=== PATIENT | female | born 1980 | race Caucasian/White ===

== ENCOUNTER 2016-04-09 12:14 | Emergency (ER) | payer BC, OTHER ==
[~2016-04-09] VITALS: Ht 175.3 cm; Wt 109.0 kg
[~2016-04-09 12:14] MED LIST: BACT800T5 PO; CLIN1CAP5 PO; LORA1TAB PO; METO25CR PO
[2016-04-09 12:18] VITALS: BP 133/81; PULSE 82; RESP 16; TEMP 97.9; O2SAT 97
[2016-04-09] MEDS ORDERED: METO50TA PO (12:28)
[2016-04-09] MEDS ORDERED: SULF1TAB23 PO (12:28)
[2016-04-09] MEDS ORDERED: ALPR1TAB3 PO (12:28)
[2016-04-09] MEDS ORDERED: PENI500T PO (12:44)
--- NOTE | 2016-04-09 12:44 | PD ---
HPI Chief Complaint: Facial Pain or Swelling Time Seen by Provider: 12:36 Travel History International Travel<30 days: No Contact w/Intl Traveler<30days: No Traveled to known affect area: No History of Present Illness HPI This is a 35-year-old female who presents to the emergency department with 2 days of right sided facial swelling below her eye involving the maxilla. She has known chipped and broken teeth on the right side and no she needs dental work but can't afford it right now. She denies any fevers or chills. She's been on Bactrim for a rash for several days that has not helped. PFSH Past Medical History Hx Anticoagulant Therapy: No Anxiety: Yes Cardiovascular Problems: Yes (HTN) Diabetes: No Diminished Hearing: No Hypertension: Yes Immunizations Current: Yes ?: Not Tubal Ligation: Yes Past Surgical History Abdominal Surgery: No Cardiac Surgery: No Section: Yes Ear Surgery: No Endocrine Surgery: No Eye Surgery: No Genitourinary Surgery: No Neurologic Surgery: No Oral Surgery: No Thoracic Surgery: No Other Surgery: No Social History Alcohol Use: Yes Tobacco Use: Yes (03/31 PPD) Substance Use: No Allergies-Medications (Allergen,Severity, Reaction): Coded Allergies: Cipro (Verified Allergy, Severe, ITCHING/RASH/HIVES, 04/09/16) Reported Meds & Prescriptions Reported Meds & Active Scripts Active Reported Metoprolol Tartrate 50 Mg Tab 50 Mg PO BID Alprazolam 1 Mg Tab 1 Mg PO TID PRN Sulfamethoxazole-Trimethoprim 800-160 Mg Tab 1 Tab PO BID Review of Systems General / Constitutional: No: Fever, Chills Respiratory: No: Shortness of Breath Physical Exam Narrative GENERAL: Well-appearing, no acute distress, nontoxic ENT: Multiple fractured teeth along the right maxilla. Swelling of the right face infraorbital down to the axilla. No submandibular swelling. HEAD: Atraumatic. Normocephalic. ENT: No nasal bleeding or discharge. Moist mucous membranes MUSCULOSKELETAL: No obvious deformities. No clubbing. No cyanosis. No edema. NEUROLOGICAL: Awake and alert. No obvious cranial nerve deficits. Motor grossly within normal limits. Normal speech. PSYCHIATRIC: Appropriate mood and affect; insight and judgment normal. Data Data Last Documented VS Vital Signs Date Time Temp Pulse Resp B/P Pulse Ox O2 Delivery O2 Flow Rate FiO2 04/09/16 12:18 97.9 82 16 133/81 97 MDM Medical Decision Making Medical Screen Exam Complete: Yes Emergency Medical Condition: Yes Differential Diagnosis Dental abscess, Alec angina, orbital cellulitis Narrative Course This is a 35-year-old female who presents to the emergency department with swelling of the right face in the setting of poor dentition along the right maxilla. She is nontoxic appearing and has no evidence of airway compromise. She is appropriate for outpatient antibiotics. She'll be discharged on penicillin. Diagnosis Primary Impression: Dental abscess Patient Instructions: General Instructions Additional Instructions: If you develop difficulty breathing, difficulty swallowing, increasing swelling , fevers or chills return to the emergency room. Med/Other Pt SpecificInfo: Prescription(s) given Scripts Penicillin V Potassium 500 Mg [id number] Mg PO Q6H 7 Days Prov:Frances Webster MD 04/09/16 Disposition: 01 DISCHARGE HOME Condition: Stable Frances Webster MD Apr 09, 2016 12:44
== END 2016-04-09 12:50 | disposition home or self-care (01) ==
LOC: PHED 12:14
DX: K04.7 Periapical abscess without sinus (principal); F17.200 Nicotine dependence, unspecified, uncomplicated
CPT/HCPCS: 99283